=== PATIENT | female | born 1930 | race Caucasian/White ===

== ENCOUNTER → 2016-11-26 | Outpatient (REF) | payer MEDICARE, MEDICAID ==
[~2016-11-26] MED LIST: /FENO48TA; ACET65TA; ALBU2TAB; ALLO100T; ASPI81TA83; CALA120T; CALC12502; COLA100C2; CORE3.12; DEMA10TA; FERR325T; INSULANT; LIPI20TA; LISI20TA5; MAGN500T2; MILKSUS; NITR0.4S; PLAV75TA2; PRIL20CA; THERGRAN; VIST25CA; bacid; januvia
== END ==
LOC: M LAB REF 16:52
PROVIDERS: ATTEND Internal Medicine Nephrology
DX: N39.0 Urinary tract infection, site not specified (principal)

== ENCOUNTER → 2018-03-18 | Outpatient (CLI) | payer MEDICARE, MEDICAID | LOC: M RAD 11:30 | DX: I87.311 Chronic venous hypertension (idiopathic) with ulcer of right lower extremity (principal) | CPT/HCPCS: 93971 ==